=== PATIENT | female | born 1995 | race American Indian/Alaskan Native ===

== ENCOUNTER 2017-07-17 22:06 | Emergency (ER) | payer BC ==
[2017-07-17 22:29] VITALS: BP 105/67; PULSE 76; RESP 18; TEMP 98.2; O2SAT 100
[2017-07-17 23:36] LABS: SQUAMOUS EPITHIAL 4 /hpf (0-5); URINE AMORPHOUS SEDIMENT FEW /ul (<OCC); URINE BACTERIA FEW (<OCC); URINE BILIRUBIN NEGATIVE (NEGATIVE); URINE BLOOD NEGATIVE (NEGATIVE); URINE CLARITY Hazy (Clear); URINE COLOR Yellow (YELLOW); URINE GLUCOSE (UA) NORMAL (Normal); URINE LEUKOCYTE ESTERASE NEG Leu/uL (Negative); URINE PROTEIN NEGATIVE (NEGATIVE); URINE UROBILINOGEN NORMAL mg/dL (0.2-1.0)
--- NOTE | 2017-07-18 00:09 | C.PDOC ---
History Of Present Illness Pt presents to ER with c/o of exacerbation of her migraine x 1day. Reports past h/o of headache x 3 months intermittently. Described as frontal h/a. Not worse headache. Pt has not taken any pain meds. Also c/o of Lt flank / LUQ pain x 1 week worse with movement. Denies N/V/D, UTI sx, cough, dizziness or photophobia Time Seen by Provider: 07/17/17 22:58 Chief Complaint (Nursing): Headache History Per: Patient History/Exam Limitations: no limitations Current Symptoms Are (Timing): Still Present Severity: Mild Pain Scale Rating Of: 5 Past Medical History Vital Signs: Last Vital Signs Temp 98.2 F 07/17/17 22:24 Pulse 76 07/17/17 22:24 Resp 18 07/17/17 22:24 BP 105/67 07/17/17 22:24 Pulse Ox 100 07/17/17 22:24 - Medical History PMH: No Chronic Diseases Family History: States: Unknown Family Hx - Social History Hx Tobacco Use: No Hx Alcohol Use: Yes Hx Substance Use: No - Immunization History Hx Tetanus Toxoid Vaccination: No Hx Influenza Vaccination: No Hx Pneumococcal Vaccination: No Review Of Systems Constitutional: Negative for: Fever Eyes: Negative for: Vision Change Respiratory: Negative for: Cough, Shortness of Breath Gastrointestinal: Positive for: Abdominal Pain (LUQ). Negative for: Nausea, Vomiting Genitourinary: Negative for: Dysuria, Frequency, Hematuria Musculoskeletal: Negative for: Neck Pain Neurological: Positive for: Headache. Negative for: Weakness, Numbness, Dizziness Physical Exam - Physical Exam Appears: Well, Non-toxic, No Acute Distress Skin: Normal Color Head: Atraumatic Eye(s): bilateral: Normal Inspection, PERRL, EOMI Ear(s): Bilateral: Normal Nose: Normal, Other (No parasinuses tenderness) Oral Mucosa: Moist Neck: Normal ROM, Supple Cardiovascular: Rhythm Regular Respiratory: Normal Breath Sounds, No Wheezing Gastrointestinal/Abdominal: Normal Exam, Bowel Sounds, Soft, No Tenderness, No Guarding, No Rebound Back: Normal Inspection, No CVA Tenderness Extremity: Normal ROM Neurological/Psych: Oriented x3 Gait: Steady ED Course And Treatment - Laboratory Results Urine POC: Negative O2 Sat by Pulse Oximetry: 100 Pulse Ox Interpretation: Normal Progress Note: UA ordered, motrin PO ordered. On reeval pt is stable , pain improved, in no distress, using phone w/o discomfort. UA reviewed and d/w pt. pt advised to follow up with PMD for further evaluation and return precautions d /w pt Reevaluation Time: 00:13 Reassessment Condition: Improved Disposition Counseled Patient/Family Regarding: Diagnosis, Need For Followup, Rx Given - Disposition Referrals: Non [facility] Provider, [Primary Care Provider] - Disposition: HOME/ ROUTINE Disposition Time: 00:13 Condition: STABLE Additional Instructions: Please follow up with your doctor Take meds as prescribed Increase Po fluids Return to ER if symptoms worsen Prescriptions: Ibuprofen [Motrin] 600 mg PO Q6H #20 tab Instructions: Headache, Adult (DC) Forms: [employer] ([employer]) - Clinical Impression Clinical Impression: Headache, Intermittent left upper quadrant abdominal pain
== END 2017-07-18 00:18 | disposition home or self-care (01) ==
LOC: SUPCPDRO 22:06 → C.ER 22:06
DX: R51 Headache (principal); R10.12 Left upper quadrant pain

== ENCOUNTER 2018-05-24 03:57 | Emergency (ER) | payer BC, MEDICAID ==
[2018-05-24 03:55] VITALS: PULSE 95; O2SAT 100
[2018-05-24 04:42] VITALS: BMI 23.9
[2018-05-24 05:43] LABS: SQUAMOUS EPITHIAL 4 /hpf (0-5); URINE BACTERIA RARE (<OCC); URINE BILIRUBIN NEGATIVE (NEGATIVE); URINE BLOOD NEGATIVE (NEGATIVE); URINE CLARITY Hazy (Clear); URINE COLOR Yellow (YELLOW); URINE GLUCOSE (UA) NORMAL (Normal); URINE LEUKOCYTE ESTERASE 1+ Leu/uL (Negative); URINE PROTEIN NEGATIVE (NEGATIVE); URINE UROBILINOGEN NORMAL mg/dL (0.2-1.0)
--- NOTE | 2018-05-24 06:13 | OBHP ---
Datetime: 05/24/2018 04:54 IP Adm Impression: , intrauterine IP Chief Complaint Other: "cramps" since 2130 hour 05/23/18 IP Admit Plan: Observation/Evaluation Admit Comment, IP Provider: 23 y.o. P1011, LMP unsure, 20w 3d by office ultrasound 05/13/18 at 19 wee ks, c/o "cramps" while at work last night, onset 2130 hours, pain scale 9/10. Has taken nothing for i t. Not had sexual interxourse since conception. Not yet felt movement. Denies LOF, VB. Denies u rinary frequency or dysuria; nausea or vomiting. 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 Drinks 4, 20-oz bottles of water daily. care: [place] Sam[place] [facility] [place] 05/13[place]. Missed official ultrasound luz maria ointment 05/16/18 P Ob: 2017, , [place], 7lb 13oz[place] [facility] [place] no complications. 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 Deneis h/o STIs, abnormal Pap, myomata PMH: H/O intermittent, headaches since delivery, 2015. Has not had a neurologic evaluation PSH: deneis NKDA Meds: PNV Soc Hx: denies tobacco, illicit drug or EtOH use. Lives withher father and her son. Employed - as above. FOB involvement - unclear. Fam Hx: Mother alive 55 - HTN. Father alive - 55 - no med issues. PGM - possible [place] cancer P.E.: as above. WD in NAD. Awake, alert, oriented to time, person and place. Pleasant and cooperat kallie Assessment: 23 y.o. P1011, 20+ weeks, abdominal cramps - R/O UTI. FHR suggests more advanced gesta tion. Clinically stable. Plan: 1) U/A 2) OB ultrasound Addendum: - Prelim/verbal report OB ultrasound 21 weeks - U/A: leuk esterase 1+; S.G. 1.106; al shea negative Assessment: 23 y.o. P1011, 21 weeks, early UTI. Patient encouraged to continue p.o. water intake; add 1 glass cranberry juice; take antibiotics as prescirbed, and to keep ultrasound (06/05/18) and pre (06/13/18) appointments. No questons offered. Patient is clinically stable. Plan: 1) As above 2) Discharge home Pelvic Type - PN: Adequate Extremities - PN: Normal Abdomen - PN: Normal Back - PN: Normal Lungs - PN: Normal Heart - PN: Normal Neurologic - PN: Normal HEENT - PN: Normal General - PN: Normal FHR - Baseline A Provider: 150 Contraction Comments Provider: none Comments, ACOG Physical Exam: Abdomen: Soft. Gravid. Non tender in all quadrants; +/- suprapubic ten derness. Fundal height 24cm All other systems reviewed and are negative EGA AdmitDate IP: 20.5 Vital Signs Provider: Reviewed; Within Normal Limits IP Chief Complaint: Other Genitourinary Exam: Normal DTRs - PN: Not Done
--- NOTE | 2018-05-24 09:51 | US ---
Date of service: 05/24/2018 PROCEDURE: OB Pelvic Ultrasound HISTORY: P1011, unsure LMP, 20 weeks(?) LMP: Unknown COMPARISON: None available. FINDINGS: UTERUS: Gestational sac: Single intrauterine gestation. Heart rate: 142 bpm. age (Ultrasound estimated): 21 weeks 3 days +/-1 week 4 days Anum-gestational hemorrhage: None. Date of delivery (Ultrasound estimated) : 10/01/2018 Fetus is seen at cephalically presentation at the time of this exam. The amount of amniotic fluid is adequate. The placenta seen at the posterior wall. CERVIX: Measures 3.2 cm. Long and closed. No cervical abnormality seen. RIGHT OVARY: Was not visualized LEFT OVARY: Was not visualized. FREE FLUID: None. OTHER FINDINGS: None. IMPRESSION: Single intrauterine live with ultrasound estimated gestational age of 21 weeks 3 days +/-1 week 4 days. Estimated date of delivery by ultrasound is 10/01/2018. The cervix is closed measures 3.2 centimeter. The amount of amniotic fluid is adequate. The placenta seen at the posterior wall. Biophysical profile 8/8. Incidentally noted is prominent kidneys and pelvis. Preliminary report contains concordant findings was submitted by [facility].
[2018-05-24 10:36] VITALS: BP 114/64; RESP 20; TEMP 98.8
== END 2018-05-24 06:20 | disposition home or self-care (01) ==
LOC: C.EROB 03:57
DX: O23.42 Unspecified infection of urinary tract in pregnancy, second trimester (principal); Z3A.21 21 weeks gestation of pregnancy